=== PATIENT | male | born 1950 | race Caucasian/White ===

== ENCOUNTER → 2019-06-02 | Emergency (ER) | payer BC, MEDICARE, OTHER ==
[~2019-06-02] VITALS: Ht 188 cm; Wt 90.7 kg
[~2019-06-02] MED LIST: IV NS 0.9% 1,000 ML BAG IV ONE; ONDANSETRON HCL/PF 4 MG/2 ML VIAL IVP ONE; ONDANSETRON HCL/PF 4 MG/2 ML VIAL ONE
[2019-06-02 12:21] LABS: BASOPHILS # (AUTO) 0.1 /CMM (0.0-0.2); BASOPHILS % (AUTO) 0.8 % (0.0-2.0); HEMATOCRIT 44 % (39-51); HEMOGLOBIN 14.7 g/dL (13.5-17.5); LYMPHOCYTES # (AUTO) 1.1 /CMM (0.8-4.8); LYMPHOCYTES % (AUTO) 15.9 % (20.0-44.0); MEAN CORPUSCULAR HGB CONC 34 g/dl (31.0-36.0); MEAN CORPUSCULAR VOLUME 92 fL (80-96); MONOCYTES # (AUTO) 0.7 /CMM (0.1-1.30); MONOCYTES % (AUTO) 10.4 % (2.0-12.0); NEUTROPHILS % (AUTO) 70.9 % (43.0-81.0); PLATELET COUNT (AUTO) 213 /CMM (150-450); RED BLOOD CELL COUNT(AUTO) 4.75 MIL/uL (4.5-6.0); WHITE BLOOD COUNT (AUTO) 7.1 K/uL (4.3-11.0)
[2019-06-02 12:28] LABS: CALCIUM, SERUM 9.2 mg/dL (8.5-10.1); CARBON DIOXIDE 25 mmol/L (21-32); CHLORIDE 103 mmol/L (98-107); CREATININE 1.1 mg/dL (0.6-1.3); GLUCOSE 99 mg/dL (74-106); POTASSIUM 4.2 mmol/L (3.5-5.1); SODIUM SERUM 137 mmol/L (136-145); UREA NITROGEN, BLOOD 16 mg/dL (7-18)
[2019-06-02 12:34] LABS: ALANINE AMINOTRANSFERASE 31 U/L (12-78); ALBUMIN 3.3 g/dL (3.4-5.0); ALKALINE PHOSPHATASE 112 U/L (46-116); ASPARTATE AMINOTRANSFERASE 27 U/L (15-37); BILIRUBIN,DIRECT 0.1 mg/dL (0.0-0.2); BILIRUBIN,TOTAL 0.5 mg/dL (0.2-1.0); LIPASE 92 U/L (73-393); TOTAL PROTEIN, SERUM 7.3 g/dL (6.4-8.2)
--- NOTE | 2019-06-02 13:18 | NUR ---
PATIENT AWAKE ALERT STATED FEELS BETTER NOTED NO NAUSEA AND VOMITING @ THIS TIME PATIENT ON THE PHONE ,CALL LIGHT WITH IN REACH FOR NEEDED ASSSITANCE
--- NOTE | 2019-06-02 14:06 | NUR ---
DR RICK @ BESIDE FOR CT RESULT
--- NOTE | 2019-06-02 14:45 | NUR ---
PATIENT ALERT X [address] ROSELYN @ BEDSIDE
--- NOTE | 2019-06-02 14:46 | NUR ---
PATIENT SIGNED AMA FORMED NOTED PATIENT IS AMBULTORY DENIES PAIN AND SOB @ THIS TIME MD ADVICED HIM TO STAY REMAIN AMA
[2019-06-02 14:49] VITALS: BP 143/78
--- NOTE | 2019-06-02 14:51 | NUR ---
PATIENT AGREES TO FOLLOW UP PMD
== END | disposition left against medical advice (07) ==
LOC: ER 11:54
DX: K86.89 Other specified diseases of pancreas (principal); J90 Pleural effusion, not elsewhere classified; R00.1 Bradycardia, unspecified; Z98.890 Other specified postprocedural states; Z60.2 Problems related to living alone
CPT/HCPCS: 36415; 71045; 74176; 80048; 80076; 83690; 84484; 85025; 93005; 96374; 99284; J2405; J7030